=== PATIENT | female | born 1985 | race Caucasian/White ===

== ENCOUNTER 2017-09-16 10:00 | Inpatient (IN) | payer OTHER ==
[~2017-09-16] VITALS: Ht 170.2 cm; Wt 3.2 kg
[2017-09-16] MEDS ORDERED: PRENATABS RX T1 EACH PO (12:02)
== END 2017-09-25 11:50 | disposition home or self-care (01) | DRG 766 ==
LOC: O/R 09-22 06:00 → OB/GYN 09-22 06:00 → SURH 09-22 07:00 → OB/GYN 09-22 10:39
PROVIDERS: Obstetrics & Gynecology
PROC: 0UL70ZZ Occlusion of Bilateral Fallopian Tubes, Open Approach (ICD-10-PCS; 2017-09-22)
PROC: 4A033R1 Measurement of Arterial Saturation, Peripheral, Percutaneous Approach (ICD-10-PCS; 2017-09-22)
PROC: 4A1HXCZ Monitoring of Products of Conception, Cardiac Rate, External Approach (ICD-10-PCS; 2017-09-22)
PROC: 10D00Z1 Extraction of Products of Conception, Low, Open Approach (ICD-10-PCS; principal; 2017-09-22 07:00)
DX: O34.211 Maternal care for low transverse scar from previous cesarean delivery (principal); Z3A.39 39 weeks gestation of pregnancy; Z37.0 Single live birth; Z30.2 Encounter for sterilization

== ENCOUNTER 2021-10-14 06:30 | Day surgery (SDC) | payer OTHER ==
[~2021-10-14 06:30] MED LIST: PRENATABS RX T1 EACH PO
== END 2021-10-14 16:18 | disposition home or self-care (01) ==
LOC: CIR.AMB 06:30
PROVIDERS: ATTEND Obstetrics & Gynecology
DX: N84.0 Polyp of corpus uteri (principal); Z20.822 Contact with and (suspected) exposure to COVID-19